=== PATIENT | male | born 1995 | race Caucasian/White ===

== ENCOUNTER 2018-07-17 14:47 | Outpatient (CLI) | payer BC ==
--- NOTE | 2018-07-17 16:15 | RAD ---
TWO VIEWS CHEST: Date: 07-17-18 Comparison: None. History: Evaluate chest prior to medication therapy, Other disorder involving the immune system . FINDINGS: There is no pneumothorax or pleural fluid and no focal consolidation or alveolar edema. Heart and med iastinal contours appear grossly unremarkable. IMPRESSION: No acute findings. POS: [facility]
== END 2018-07-17 14:48 | disposition home or self-care (01) ==
LOC: BICRAD 14:47
PROVIDERS: ATTEND Internal Medicine Rheumatology
DX: D89.89 Other specified disorders involving the immune mechanism, not elsewhere classified (principal)
CPT/HCPCS: 71046

== ENCOUNTER 2018-10-24 10:45 | Outpatient (CLI) | payer BC ==
--- NOTE | 2018-10-24 12:21 | BD ---
DEXA BONE DENSITY STUDY: Date: 10/24/18 HISTORY: 23-year-old male with osteoporosis. FINDINGS: Lumbar Spine: BMD (g/cm2) L1 0.834 T-Score: -2.2 L2 0.819 T-Score: -2.5 L3 0.852 T-Score: -2.3 L4 0.843 T-Score: -2.2 L1-L4 0.838 T-Score: -2.3 Femoral Neck: 0.728 T-Score: -1.5 Total Femur: 0.866 T-Score: -1.1 IMPRESSION: Osteopenia. This patient has a 10 year WHO fracture risk for a major osteoporotic fracture of 2% and hip fracture of 0.2%. POS: [facility]
== END 2018-10-24 10:46 | disposition home or self-care (01) ==
LOC: BICMAMMO 10:45
PROVIDERS: ATTEND Internal Medicine Rheumatology
DX: M81.8 Other osteoporosis without current pathological fracture (principal); M85.89 Other specified disorders of bone density and structure, multiple sites
CPT/HCPCS: 77080

== ENCOUNTER 2025-04-23 08:07 | Day surgery (SDC) | payer SELFPAY ==
[2025-04-22 09:45] VITALS: BMI 23.5
[~2025-04-23 08:07] MED LIST: Fluorouracil 100 MG, EPINEPHrine 0.3 MG in Ophthalmic Irrigation Solution 500 ML IRR SCH
[2025-04-23] MEDS ORDERED: Cyclopentolate 1% Opth Drop 2 ML BOT ONE (08:48)
[2025-04-23] MEDS ORDERED: PROPOFOL 40 ML ONE (08:56)
[2025-04-23] MEDS ORDERED: Ondansetron PF 4 MG/2 ML Vial ONE (08:56)
[2025-04-23] MEDS ORDERED: Lidocaine 1% PF 5 ML VIAL ONE ×2 (08:56→09:58)
[2025-04-23] MEDS ORDERED: Rocuronium Bromide 10 MG/ML (10ML VIAL) ONE (09:21)
[2025-04-23] MEDS ORDERED: Maxitrol 0.1% Opth Oint 3.5 GM TUBE ONE (09:58)
[2025-04-23] MEDS ORDERED: Lidocaine 4% PF 5 ML AMP ONE (09:58)
[2025-04-23] MEDS ORDERED: TISSUEBLUE 0.5 ML SYRINGE IO ONE (09:58)
[2025-04-23] MEDS ORDERED: CEFAZOLIN 1 GM VIAL ONE (09:58)
== END 2025-04-23 13:30 | disposition home or self-care (01) ==
LOC: SDC 08:07
PROVIDERS: ATTEND Ophthalmology Retina Specialist
DX: H33.42 Traction detachment of retina, left eye (principal); H91.91 Unspecified hearing loss, right ear; F17.290 Nicotine dependence, other tobacco product, uncomplicated
CPT/HCPCS: J0166; J0690; J1100; J2250; J2704; J3010; J3301; J3490; J9190